=== PATIENT | male | born 2000 | race Caucasian/White ===

== ENCOUNTER 2022-08-06 10:09 | Outpatient (CLI) | payer OTHER ==
--- NOTE | 2022-08-06 13:07 | MRI Report ---
PROCEDURE: KNEE WO - RT INDICATIONS: SPRAIN OF RIGHT KNEE TECHNIQUE: Noncontrast sagittal PD fast spin echo and T2 fast spin echo with fat saturation, sagittal 3-D spoile d GE with fat saturation; coronal T1 spin echo and PD fast spin echo with fat saturation, and axial P D fast spin echo with fat saturation through the knee. COMPARISON: None. FINDINGS: Image quality: Excellent. Anterior cruciate ligament: Intact. Posterior cruciate ligament: Intact. Medial collateral ligament: Intact. Lateral collateral ligament: Intact. Medial meniscus: Intact. Lateral meniscus: Intact. Medial and lateral tendons: The semimembranosus tendon insertions appear intact. Visualized portion s of the pes anserinus tendons appear normal. The popliteus tendon appears intact. Iliotibial band appears normal. Anterior structures: The patellar tendon and the distal quadriceps tendon appear intact. 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 The tibial tubercle-trochl ear groove distance is within normal limits at 15 mm. The medial patellofemoral ligament appears atte nuated near its femoral attachment, and may be chronically torn. No edema in the infrapatellar fat pa d. Bones: Irregular contour of the inferomedial patella is most likely related to prior trauma. There i s adjacent small ossification that may be related to a prior avulsion injury. Medial femorotibial cartilage: Intact. Lateral femorotibial cartilage: Focal full-thickness cartilage loss at the central to anterior weigh tbearing portion of the lateral femoral condyle with subchondral osteophyte formation measuring appro ximately 14 x 11 mm. Patellofemoral cartilage: Full-thickness cartilage loss is seen at the median ridge and medial facet of the patella inferiorly with subchondral edema and subchondral osteophyte formation.. Soft tissues: There is a small joint effusion. A displaced osteochondral fragment is seen in the sup rapatellar recess measuring up to 22 x 9 x 24 mm. There is no medial popliteal cyst. The musculature surrounding the knee is normal in bulk. IMPRESSION: 1.Findings below are most likely related to a remote prior episode of transient lateral patellar disl ocation. 2.Irregular contour of the inferomedial patella and adjacent nonedematous ossification most likely re lated to prior trauma. There is overlying full-thickness cartilage loss at the median ridge and media l facet of the patella with subchondral edema and subchondral osteophyte formation. 3.Focal full-thickness cartilage loss at the central to anterior weightbearing portion of the lateral femoral condyle laterally, with subchondral osteophyte formation. 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 The tibial tubercle-t rochlear groove distance is within normal limits. 5.Attenuation of the medial patellofemoral ligament adjacent to its femoral attachment is suspicious for chronic partial or complete tearing. 6.Small joint effusion. Osteochondral loose body in the suprapatellar recess measures up to 24 mm in maximum dimension. Reviewed by: Vito Olmedo MD on 08/06/2022 1:06 PM PDT Approved by: Vito Olmedo MD on 08/06/2022 1:06 PM PDT Station ID: [id number]
== END 2022-08-06 10:10 | disposition home or self-care (01) ==
LOC: DI 10:09
PROVIDERS: ATTEND Internal Medicine
DX: M94.261 Chondromalacia, right knee (principal); M25.761 Osteophyte, right knee; M25.461 Effusion, right knee; M23.41 Loose body in knee, right knee

== ENCOUNTER 2023-06-16 15:39 | Outpatient (CLI) | payer OTHER ==
--- NOTE | 2023-06-16 16:24 | Sleep Patient Instructions ---
Sleep Center Visit Summary - Patient Visit Information Reason for Visit: Initial consult for evaluation of sleep disordered breathing and other sleep issues. - Patient Instructions Instructions Attached: Sleep Study Home Monitor Additional Instructions: You will be completing a sleep study, either an in-lab polysomnography (PSG) or home sleep study (HST). You will follow-up in the sleep care office after the sleep study is completed to hear the results and talk about therapy, if needed. You will be called by our office staff to schedule this appointment, but you may contact us with any questions. - Clinic Information Contact: [facility] [address] [place] [address] [email or web address] T: [phone]
[2023-06-16 16:28] VITALS: BP 167/94; O2SAT 93
--- NOTE | 2023-06-16 16:28 | SLEEP CARE CONSULTATION ---
Information from patient questionnaire entered by Lisa Mohan. I have reviewed and concur with the information entered by Lisa Mohan. This document represents the service I personally performed and the decisions made by me, Sonia Philip ARNP. History of Present Illness Service Date and Time: 06/16/2023 1539 Reason for Visit: New patient Chief Complaint: reports: Unrefreshed sleep, Snoring, Excessive daytime sleepiness, Observed pauses in breathing, Fatigue, Frequent awakenings at night Date of Onset: 3YRS Usual bedtime: DAY SHIFT [id number] [employer] [id number] Time it takes to fall asleep: 60+MINS Snores at night: Yes Observed to quit breathing while asleep: Yes Sleeps alone due to snoring: No Number of times waking at night: 3-4 Reasons for waking at night: reports: Snoring, Gasping for air, Pain, Bathroom, Other (NOISE). denies: Choking Toss, Turn, or Twitch while sleeping: Yes Recalls having dreams: Yes Usually gets out of bed at: DAYS 0900 Feels refreshed in the morning: No Morning headache: Yes (1 time every 1-2 months; last all day) Sleepy or fatigued during the day: Yes Ever fallen asleep while driving: No Takes day naps: Yes (on days off; 1-2 naps, avg 1 hr to 1.5 hr) Dreams during day naps: Yes Prior sleep studies: No Additional HPI information: I had the pleasure of seeing FERCHO SLOAN today regarding the possibility of him having a sleep disorder. His current complaints are unrefreshed sleep, snoring, excessive daytime sleepiness, observed pauses in breathing, fatigue and frequent night awakenings. He says he has been being woke up since he was a child because he stopped breathing at night by roommates. He does snore, especially when sleeping on his back, but he keeps his head elevated when sleeping to reduce snoring. His work shift changes from days to night for 12 hour shifts, it rotates this way all the time. He says it takes about an hour or more to fall asleep regardless of time for sleep. He does wake up 3-4 times a night. He does not wake up feeling rested and is tired throughout the day. His father has sleep apnea and is on a PAP machine. - Parasomnia Symptoms Ever been unable to move upon waking from sleep: No Walks in sleep: No Talks in sleep: No Ever acted out dreams in sleep: Yes (sometimes) Ever felt weak in the knees when startled or emotional: No Bothered by creepy, crawly, restless sensations in legs: Yes (9-10 pm when changing shift from night to day) Problems with memory or concentration: Yes (both) Subjective Initial [place] Sleepiness Scale score: 11 (06/16/23) Past Medical History Past Medical History: reports: Anxiety, Depression Social History The patient's occupation is a AM. Patient is Single and lives in [place]. Have you smoked in the past 12 months: Yes (vaping) Cigarettes per day (20/pack): 20 Years of smokin Smoking Pack Years: 7.0 Alcohol use: Yes Alcohol amount and frequency: 3-4 MONTHLY Caffeine use: Yes Caffeine amount and frequency: 1-2 DAILY Family History Family history of sleep disordered breathing: Yes Family Hx Sleep Apnea: Father: Snoring, Sleep apnea - Treated Allergies and Home Medications Known drug allergies: No Drug allergies reviewed: Yes Home medication list reviewed: Yes (as listed) Allergy and home medication list: Allergies No Known Drug Allergies Allergy (Verified 06/16/23 15:58) Home Medications FLUoxetine [PROzac] See Rx Instructions .ROUTE .COMPLEX 06/16/23 [History] busPIRone [Buspar] See Rx Instructions .ROUTE .COMPLEX 06/16/23 [History] Review of Systems Cardiovascular: denies: high blood pressure Gastrointestinal: denies: heartburn Neurological: denies: headaches Psychiatric: reports: anxiety, depression, mood disorder Ear/Nose/Throat: reports: wisdom teeth removed. denies: tonsillectomy Endocrine: reports: sluggishness, too hot or cold Musculoskeletal: reports: joint pain, back pain Immunologic: reports: allergies to food or environment (goldenrod, ragweed) Physical Exam Vital signs obtained and entered by: LISA Mckinney MA Blood Pressure: 167/94 (RIGHT ARM) Cuff size: long Heart Rate: 80 O2 Saturation: 93 Height: 6 ft 1 in Weight: 263 lb 9.6 oz Body Mass Index: 34.7 BMI Classification: Obese Neck circumference: 17 Mouth and throat: narrow oropharynx Soft palate: long Hard palate: normal Uvula: normal Uvula visualization: 0% Mallampati Class IV Tongue: enlarged in size with teeth philip on lateral edges Tonsils: 2+ Neck: normal w/o lymphadenopathy or thyromegaly Heart: regular rate and rhythm Lungs: clear bilaterally Impression and Plan 1. Suspected Obstructive Sleep Apnea-Hypopnea Syndrome, as suggested by a history of loud and irregular snoring, observed cessation of breath while asleep, gasping or choking in sleep, frequent awakening during the night, unrefreshed sleep, cognitive impairment, and excessive daytime sleepiness. Narrow oropharynx and obesity are common predisposing factors for obstructive sleep apnea-hypopnea syndrome. I recommend proceeding to polysomnography to confirm the diagnosis and to assess severity. If the patient has significant sleep disordered breathing, a manual CPAP titration study will also be performed to find the optimal treatment pressure. I informed the patient of what the sleep studies involve and after some discussion, obtained agreement to proceed. The pathophysiology of obstructive sleep apnea-hypopnea syndrome was discussed with the patient and health risks of cardiovascular and cerebrovascular disease if not treated. 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 Patient agreed to plan. * Schedule polysomnography * Avoid long distance driving or driving when feeling sleepy. * Avoid alcohol, sedative and muscle relaxant around bedtime. * Attempt to lose weight. * Review instructions provided by trained office staff on how to prepare for the sleep study. * Return for follow-up after sleep study completed. Counseling Topics: Weight loss health impact Plan: PSG/HST Visit Type: In Office Time Spent with Patient (minutes): 30 Provider Statement: I spent 100% of the Face to Face Visit with the patient with greater than 50% spent counseling the patient and coordination of care.
== END 2023-06-16 15:40 | disposition home or self-care (01) ==
LOC: SC 15:39
PROVIDERS: ATTEND Nurse Practitioner Family
DX: G47.10 Hypersomnia, unspecified (principal); R06.83 Snoring; R06.81 Apnea, not elsewhere classified; G47.8 Other sleep disorders
CPT/HCPCS: 99203; 99212

== ENCOUNTER 2023-07-20 09:31 | Outpatient (CLI) | payer OTHER | END 2023-07-20 09:32 | disposition home or self-care (01) | LOC: SC 09:31 | PROVIDERS: ATTEND Nurse Practitioner Family | DX: G47.33 Obstructive sleep apnea (adult) (pediatric) (principal); R09.02 Hypoxemia; E66.9 Obesity, unspecified; Z68.34 Body mass index [BMI] 34.0-34.9, adult | CPT/HCPCS: 95806 ==

== ENCOUNTER 2023-08-20 14:04 | Outpatient (CLI) | payer OTHER ==
--- NOTE | 2023-08-20 14:25 | Sleep Patient Instructions ---
Sleep Center Visit Summary - Patient Visit Information Reason for Visit: Sleep study follow-up - Patient Instructions Additional Instructions: You are being started on CPAP therapy with pressure setting at 4-15 cmH2O. You will need to call the sleep care office to set up your follow up once you have your CPAP machine to check compliance and response to therapy at that time. You may call the office with any concerns about pressure feeling too low or too much for adjustment, if needed. You should contact DME supplier for any questions or concerns about mask or equipment. Please call office to schedule a follow up appointment in the sleep care office one month after obtaining new device. - Clinic Information Contact: [facility] [address] [place] [address] [email or web address] T: [phone]
--- NOTE | 2023-08-20 14:28 | SLEEP CARE CONSULTATION ---
Information from patient questionnaire entered by Lisa Mohan. I have reviewed and concur with the information entered by Lisa Mohan. This document represents the service I personally performed and the decisions made by me, Sonia Philip ARNP. History of Present Illness Service Date and Time: 08/20/2023 1404 Initial [place] Sleepiness Scale score: 11 (06/16/23) Current [place] Sleepiness Scale score: 8 Additional HPI information: FERCHO SLOAN returns for follow up and results of the recently performed home sleep study. The sleep study done on 07/20/23 showed mild obstructive sleep apnea with an average AHI of 10 and cal oxygen saturation of 86%. He had tachycardia with maximum heart rate of 127 noted during sleep study. I explained the pathophysiology behind obstructive sleep apnea. We then spent quite a bit of time discussing different treatment options. For mild obstructive sleep apnea, surgery and oral appliance are alternatives to nasal CPAP therapy but in moderate or severe cases, nasal CPAP is the most effective and reliable treatment. Because apnea is primarily in supine position, then positional management therapy could be effective. Methods discussed such as positioning with pillows, using a T-shirt with tennis balls in the back or commercial products that have a pillow format on back to prevent supine sleep. I reviewed the impact of weight changes on sleep apnea and strongly recommended losing weight. After some discussion, the patient opted to go with the nasal CPAP therapy. Nasal autoCPAP set at 4-15 cmH20 will be ordered with rationale explained. A manual titration study will be ordered if unable to find optimal pressure with office adjustments. I explained how CPAP machine works and what to expect when using the machine. Using CPAP every night in order to get used to it was emphasized. Patient advised to put CPAP mask on before getting into bed so as not to fall asleep without CPAP. To assist acclimation to CPAP use, it could also be used for a short time during day while reading or watching TV. The patient was instructed to call the CPAP supplier to discuss any mechanical problem that may occur. If the mask given is uncomfortable or is difficult to keep on through the night even with adjustment, contact the CPAP supplier as many will replace with another mask style if notified before 30 days. If snoring or perceives is not getting enough air or too much air from the machine, notify this office. Patient counseled not drink alcohol less than 4 hours before bedtime as it can increase snoring and apnea. Patient was cautioned about risks of drowsy driving until sleepiness symptoms resolve. Patient denies drowsy driving. Sleep Study - Results Type of Sleep Study: Home sleep study (COMPLETED 07/20/23) Prior sleep studies: No Polysomnography/Home Sleep Study results: Physician Impression: The quality of the study is fair due to partial loss of pulse oximetry signal. The length of the study is adequate (> 240 minutes). Please also see the tabulated and graphic data. 1. Obstructive Sleep Apnea-Hypopnea (ICD-10 G47.33), mild, with an AHI of 10.0/hr and cal SaO2 of 86%. During the study, the patient had 17 apneas (17 obstructive, 0 central, 0 mixed) and 25 hypopneas. The longest episode lasted 94.0 seconds. The respiratory events occurred almost exclusively during supine sleep (supine AHI was 16.5 and non-supine, 2.54). 2. Hypoxemia (ICD-10 R09.02), mild, with the lowest oxygen saturation of 86 % and 1.4 minutes with SaO2 under 90%. Baseline oxygen saturation was normal (Average oxygen saturation was 95%). 3. Tachycardia, with maximum recorded heart rate of 127 beats per minute. Allergies and Home Medications Known drug allergies: No Drug allergies reviewed: Yes Home medication list reviewed: Yes (no changes) Allergy and home medication list: Allergies No Known Drug Allergies Allergy (Verified 08/18/23 10:07) Review of Systems Review of systems same as previous: Yes (no changes) Physical Exam Vital signs obtained and entered by: Sonia Craven NP Blood Pressure: 136/89 Cuff size: long (left arm) Heart Rate: 68 O2 Saturation: 99 Height: 6 ft 1 in Weight: 267 lb 9.6 oz Body Mass Index: 35.3 BMI Classification: Obese Impression and Plan 1. Obstructive Sleep Apnea-Hypopnea Syndrome, mild, with lowest oxygen saturation of 86%. Obviously this is the cause of the patients symptoms of unrefreshed sleep, and excessive daytime sleepiness. Positive pressure therapy could benefit anxiety and depression. As mentioned above, the patient will be started on nasal autoCPAP therapy with pressure set at 4-15 cmH2O. A manual titration study will be completed if unable to find optimal treatment pressure with office adjustments. Compliance guidelines also reviewed. A copy of compliance guidelines will be given for reference at check out. Because the apnea is more severe supine, I instructed to avoid sleeping supine using pillow positioning until able to start CPAP use. 2. Tachycardia. Elevated heart rate with maximum heart rate at 127 bpm noted during his HST. Further evaluation may be indicated and patient encouraged to follow-up with primary care provider. 3. Hypoxemia, mild, with a cal oxygen saturation of 86% and 1.4 minutes spent under 90%. The baseline oxygen saturation was normal with an average oxygen saturation of 95%. 4. Obesity, unspecified. Currently patients BMI is 35.3. Obesity increases the risk of apnea, CPAP pressure requirements and overall health risks especially cardiovascular and diabetes. Thus patient is advised to lose weight. * Nasal auto CPAP therapy, pressure at 4-15 cmH2O. * Attempt to lose weight. * Avoid alcohol consumption near bedtime. * Avoid supine sleep until using CPAP. * The patient is again cautioned about driving until sleepiness completely resolves. * Return one month after CPAP obtained. I will assess response to therapy and compliance at that time. Counseling Topics: Sleeping position, Weight loss health impact Prescriptions: Auto CPAP Plan: start cpap and compliance follow up Visit Type: In Office Time Spent with Patient (minutes): 20 Provider Statement: I spent 100% of the Face to Face Visit with the patient with greater than 50% spent counseling the patient and coordination of care.
[2023-08-20 14:52] VITALS: BP 136/89; O2SAT 99
== END 2023-08-20 14:05 | disposition home or self-care (01) ==
LOC: SC 14:04
PROVIDERS: ATTEND Nurse Practitioner Family
DX: G47.33 Obstructive sleep apnea (adult) (pediatric) (principal); R00.0 Tachycardia, unspecified; R09.02 Hypoxemia; E66.9 Obesity, unspecified; Z68.35 Body mass index [BMI] 35.0-35.9, adult
CPT/HCPCS: 99212; 99213

== ENCOUNTER 2023-11-03 09:06 | Outpatient (CLI) | payer OTHER ==
--- NOTE | 2023-11-03 10:16 | Sleep Patient Instructions ---
Sleep Center Visit Summary - Patient Visit Information Reason for Visit: First complaint follow-up for PAP therapy - Patient Instructions Additional Instructions: You were here for follow up of CPAP therapy. You will be continued on CPAP therapy with pressure at 5-7 cmH2O. Please let us know if the pressure change is uncomfortable and we can make further adjustments of the pressure. You should follow up with sleep care in 1-2 months. You may contact us sooner for any questions or concerns. - Clinic Information Contact: [facility] [address] [place] [address] [email or web address] T: [phone]
[2023-11-03 10:18] VITALS: BP 150/92; O2SAT 91
--- NOTE | 2023-11-03 10:18 | SLEEP CARE CONSULTATION ---
Information from patient questionnaire entered by Lisa Mohan. I have reviewed and concur with the information entered by Lisa Mohan. This document represents the service I personally performed and the decisions made by , Sonia Philip ARNP. History of Present Illness Service Date and Time: 11/03/2023905 Previous diagnosis: Mild, Obstructive Sleep Apnea-Hypopnea Syndrome AHI: 10 (07/20/23) Reason for follow up: first compliance Equipment type: CPAP (RESMED S/U 09/17/23) Equipment obtained from: Other ([employer]) Mask style: Nasal Mask brand: Respironics (Dreamwear) Backup mask available: No Last cushion change: 2 weeks Prior sleep studies: No Type of Sleep Study: Home sleep study (COMPLETED 07/20/23) HPI additional information: FERCHO SLOAN was diagnosed to have mild, AHI 10, obstructive sleep apnea- hypopnea syndrome and returned today for CPAP therapy first compliance follow- up. Sleep Study - Results Type of Sleep Study: Home sleep study (COMPLETED 07/20/23) Prior sleep studies: No CPAP Compliance Data - Data Reviewed with Patient Average duration of nightly device use: 1 hour 55 mins Compliance rate %: 4 (09/17/23-11/02/23) Current pressure setting (cmH2O): 4-15 (median 5.1, avg 7.7, max 8.3) Average residual AHI: 1.5 Central apnea: 0 Obstructive apnea: 1.1 Average large leak: 0.3 L/min Subjective Missed days of use due to: reports: other (UNABLE TO FALL ASLEEP WITH MASK ON) Patient concerns: reports: mask discomfort, nasal congestion (one nostril clogged), dry mouth, nose, throat (some dry mouth). denies: aerophagia, air blowing in eyes, mask leak noise, condensation in mask/hose, epistaxis Observed to snore while using device: No Current pressure setting perceived as: too high On therapy, patient: reports: more rested overall. denies: drowsiness while driving Initial [place] Sleepiness Scale score: 11 (06/16/23) Current [place] Sleepiness Scale score: 7 (11/03/23) Allergies and Home Medications Known drug allergies: No Drug allergies reviewed: Yes Home medication list reviewed: Yes (no changes) Allergy and home medication list: Allergies No Known Drug Allergies Allergy (Verified 11/03/23 09:33) Review of Systems Review of systems same as previous: Yes (NO CHANGE) Physical Exam Vital signs obtained and entered by: LISA Mckinney MA Blood Pressure: 150/92 (LEFT ARM) Cuff size: long Heart Rate: 72 O2 Saturation: 91 Height: 6 ft 1 in Weight: 284 lb 9.6 oz Body Mass Index: 37.5 BMI Classification: Obese Impression and Plan 1. Obstructive Sleep Apnea-Hypopnea Syndrome, mild, with poor treatment compliance and good apnea control. On CPAP therapy, the patient has felt more rested overall when he was able to keep mask on for 4 hours or more. He says he tolerated the mask better in the beginning but now is having difficulty falling asleep with the mask on. He has some dry mouth occasionally and nasal conge stion when using the machine. He feels the pressure is too high. The patients pressure will be changed to autoCPAP 5-7 cmH20 to reflect pressure being used. Patient advised to contact me if pressure change is uncomfortable so that it can be adjusted. Goals for apnea control discussed. He was also advised to increase humidity by one to reduce oral dryness and nasal congestion. He may also try a nasal moisturizer to help with the nasal dryness and congestion. He voiced understanding and agreement. Patient's apnea severity and rationale for treatment to reduce apnea, improve sleep quality and reduce cardiovascular and cerebrovascular events was reviewed. I also reviewed the benefit of consistent device use of CPAP for depression/anxiety. 2. Obesity, unspecified. Currently patients BMI is 37.5. Obesity increases the risk of apnea, CPAP pressure requirements and overall health risks especially cardiovascular and diabetes. Thus patient is advised to lose weight. * Change auto CPAP pressure to 5-7 cmH2O * Notify me if snoring with mask or feeling that the pressure is too much or too little * Attempt to lose weight * Call this office if any problems using CPAP * Return for follow up in 1-2 months, or sooner if concerns arise Counseling Topics: Spare mask, Weight loss health impact Follow up with Sleep Care in: 1-2 months Visit Type: In Office Time Spent with Patient (minutes): 21 Provider Statement: I spent 100% of the Face to Face Visit with the patient with greater than 50% spent counseling the patient and coordination of care.
== END 2023-11-03 09:07 | disposition home or self-care (01) ==
LOC: SC 09:06
PROVIDERS: ATTEND Nurse Practitioner Family
DX: G47.33 Obstructive sleep apnea (adult) (pediatric) (principal); E66.9 Obesity, unspecified; Z68.37 Body mass index [BMI] 37.0-37.9, adult
CPT/HCPCS: 99212; 99213